=== PATIENT | male | born 1945 | race Caucasian/White ===

== ENCOUNTER 2017-12-15 17:25 | Emergency (ER) | payer MEDICARE, OTHER ==
[~2017-12-15] VITALS: Ht 180.3 cm; Wt 88.6 kg
[~2017-12-15 17:25] MED LIST: HIGH BLOOD PRESSURE; NORCO 325 MG-51 TAB PO; PRAVACHOL 20MG20 MG PO; PROMETHAZINE12.5 M5 PO; VASOTEC 5MG5 MG/TAB PO
[2017-12-15 17:28] VITALS: BP 144/90; TEMP 98.9
[2017-12-15] MEDS ORDERED: CONSTULOSE 20G/30ML PO (20:01)
[2017-12-15 20:15] VITALS: PULSE 101
== END 2017-12-15 20:17 | disposition home or self-care (01) ==
LOC: COL.ER 17:25
DX: K59.00 Constipation, unspecified (principal); I10 Essential (primary) hypertension; E78.5 Hyperlipidemia, unspecified; Z98.890 Other specified postprocedural states

== ENCOUNTER 2018-01-04 13:03 | Day surgery (SDC) | payer MEDICARE, OTHER ==
[~2018-01-04] VITALS: Ht 180.3 cm; Wt 95.7 kg
[~2018-01-04 13:03] MED LIST changes: +CONSTULOSE 20G/30ML PO
[2018-01-04 13:24] VITALS: BP 139/73; PULSE 95; TEMP 97.5
[2018-01-04 14:45] VITALS: BP 116/58; PULSE 86; TEMP 97.9
[2018-01-04 15:00] VITALS: BP 108/61; PULSE 80
== END 2018-01-04 15:25 | disposition home or self-care (01) ==
LOC: SDCO 13:03
DX: Z12.11 Encounter for screening for malignant neoplasm of colon (principal); K59.00 Constipation, unspecified; K57.30 Diverticulosis of large intestine without perforation or abscess without bleeding
CPT/HCPCS: G0121; J2250; J2405; J3010; J7030

== ENCOUNTER 2019-03-12 17:48 | Emergency (ER) | payer MEDICARE, OTHER ==
[~2019-03-12] VITALS: Ht 180.3 cm; Wt 86.4 kg
[2019-03-12 17:56] VITALS: BP 172/79; TEMP 98.5
[2019-03-12 20:13] VITALS: PULSE 79
== END 2019-03-12 20:17 | disposition home or self-care (01) ==
LOC: COL.ER 17:48
DX: K59.00 Constipation, unspecified (principal); I10 Essential (primary) hypertension; E70.0 Classical phenylketonuria

== ENCOUNTER 2019-03-21 22:41 | Inpatient (IN) | payer MEDICARE, OTHER ==
[~2019-03-21] VITALS: Ht 180.3 cm; Wt 90.6 kg
[2019-03-21 23:05] LABS: BASO % 0.1 % (0.0-2.0); GRAN # 13.3 (1.4-6.5); GRAN % 85.9 % (42.2-75.2); HEMATOCRIT 47.4 % (42.0-52.0); LYMPH # 1.4 (1.2-3.4); LYMPH % 9.3 % (20.0-51.0); MEAN CELL VOLUME 84 fl (80.0-100.0); MEAN CORPUSCULAR HEMOGLOBIN 29 pg (27.0-31.0); MEAN CORPUSCULAR HGB CONC 34 g/dl (33.0-37.0); MEAN PLATELET VOLUME 9.8 fl (7.4-10.4); MONO # 0.7 (0.1-0.6); MONO % 4.2 % (1.7-9.3); PLATELET COUNT 347 K/mm3 (130-400); RED BLOOD COUNT 5.62 M/mm3 (4.20-5.60); REDCELL DISTRIBUTION WIDTH-CV 13.5 % (11.5-14.5)
[2019-03-21 23:09] LABS: INR 1.1 (0.8-3.0); PROTHROMBIN TIME 12.3 SECONDS (9.7-12.8)
[2019-03-21 23:15] LABS: ALANINE AMINOTRANSFERASE 41 U/L (21-72); ALBUMIN 4.6 gm/dL (3.5-5.0); ALKALINE PHOSPHATASE 177 U/L (50-136); ANION GAP 16 mmol/L (7-16); AST,SGOT 31 U/L (15-37); BILIRUBIN,TOTAL 0.6 mg/dL (0.0-1.0); BLOOD UREA NITROGEN 21 mg/dL (9-20); CARBON DIOXIDE 27 mmol/L (22-30); CHLORIDE 98 mmol/L (98-107); CREATININE, serum 1.11 (0.66-1.25); GLUCOSE 260 mg/dL (74-106); LIPASE 76 U/L (23-300); POTASSIUM 4.2 mmol/L (3.4-5.0); SODIUM 141 mmol/L (137-145); TOTAL PROTEIN 7.8 gm/dL (6.4-8.2)
[2019-03-21 23:26] LABS: TROPONIN-I < 0.012 ng/mL (0.000-0.035)
--- NOTE | 2019-03-22 01:30 | NUR ---
Admitted per w/c from ED with diagnosis partial small bowel obstruction. Is alert and oriented x3. Has NGT to right nare, placed to LIS with return of green drainage. Has SL to right AC without redness or swelling. SCD's placed on patient. Oriented to call light and bed controls. Urinal at bedside, instructed to use the call light if needing to go to the bathroom, as his NGT would need to be unhooked, he verbalized understanding. Reviewed admission questions with patient.
[2019-03-22 02:06] VITALS: BP 150/63; PULSE 94; TEMP 98
--- NOTE | 2019-03-22 02:15 | NUR ---
Connected to IVF at 125cc/hr to right AC. Rates pain 4/10 to upper abdomen. No longer nauseated. Asks for lights out at this time.
[2019-03-22 03:39] VITALS: BP 136/57; PULSE 93; TEMP 98.2
--- NOTE | 2019-03-22 06:00 | NUR ---
Has 450cc of output from NGT. Denies need for pain med at this time.
[2019-03-22 06:58] VITALS: BP 144/61; PULSE 94; TEMP 98.3
[2019-03-22 07:48] LABS: HEMATOCRIT 43.4 % (42.0-52.0); HEMOGLOBIN 14.7 g/dl (13.5-18.0); MEAN CELL VOLUME 85 fl (80.0-100.0); MEAN CORPUSCULAR HEMOGLOBIN 29 pg (27.0-31.0); MEAN CORPUSCULAR HGB CONC 34 g/dl (33.0-37.0); MEAN PLATELET VOLUME 9.7 fl (7.4-10.4); PLATELET COUNT 338 K/mm3 (130-400); RED BLOOD COUNT 5.12 M/mm3 (4.20-5.60); REDCELL DISTRIBUTION WIDTH-CV 13.7 % (11.5-14.5)
--- NOTE | 2019-03-22 08:00 | NUR ---
Patient is sitting up in bed at this time. Minimal complaints of pain, mostly to his right nare. Spoke with Dr Pizano about patients glucose being over 260 on admission. Hospitalist consulted and notified. NG to LIS with bright green drainage. Patient denies nausea. No other changes at this time. Call light within reach.
[2019-03-22 08:17] LABS: CALCIUM 9.4 mg/dL (8.4-10.2); POTASSIUM 3.9 mmol/L (3.4-5.0)
[2019-03-22 10:13] LABS: BAND 3 % (0-10); LYMPHOCYTE 12 % (20.0-51.0); NEUTROPHILS 80 % (42.0-75.2); PLATELET ESTIMATE NORMAL (NORMAL)
--- NOTE | 2019-03-22 11:14 | NUR ---
Initial visit; Patient thanked [employer] for stopping and offering spiritual care. Patient spoke of his alcoholism and how he has gained a closer walk with God through the [employer] Program of Alcoholics Anonymous.
[2019-03-22 12:44] VITALS: BP 136/63; PULSE 90; TEMP 98.4
--- NOTE | 2019-03-22 13:32 | NUR ---
KEYLA met with the patient to discuss a discharge plan. The pt lives alone in [place]. The pt does not use any DME and reports independence with ADLs. The pt's PCP is Dr. Unger and the pt receives his medications from [facility] and via mail from [facility]. The pt reports no difficulties obtaining his medications. The pt does not have advanced directives in the EMR, but was not interested in obtaining his DPOA-HC at this time. The pt plans to return home upon discharge. KEYLA will continue to follow.
[2019-03-22 17:35] VITALS: BP 147/68; PULSE 87; TEMP 97.9
--- NOTE | 2019-03-22 18:30 | NUR ---
Patient has been doing ok today. His main complaint is of the NG tube. He has a bloody nose to the side the NG is on. Offered to move NG to other side but he was worried that would not help and to just leave to right nare. Minimal complaints of pain. Continues to deny nausea. 550 of green drainage from NG tube this shift. No other changes at this time. Call light within reach.
[2019-03-22 19:26] VITALS: BP 154/68; PULSE 88; TEMP 98.7
--- NOTE | 2019-03-22 21:00 | NUR ---
Pt. sitting up in bed at this time. Pt. is A&OX3, assessment complete. INT to rt. ac patent, IV to rt. forearm patent, IV fluids infusing per orders. NG tube to LIS, green drainage noted. Pt. denies pain or other needs at this time. Call light within reach.
[2019-03-23 00:39] VITALS: BP 120/49; PULSE 66; TEMP 98.1
[2019-03-23 04:24] VITALS: BP 130/65; PULSE 72; TEMP 99
[2019-03-23 06:20] LABS: HEMATOCRIT 37.9 % (42.0-52.0); MEAN CELL VOLUME 86 fl (80.0-100.0); MEAN CORPUSCULAR HEMOGLOBIN 29 pg (27.0-31.0); MEAN CORPUSCULAR HGB CONC 33 g/dl (33.0-37.0); PLATELET COUNT 275 K/mm3 (130-400); REDCELL DISTRIBUTION WIDTH-CV 13.8 % (11.5-14.5)
[2019-03-23 06:23] LABS: HEMOGLOBIN 12.6 g/dl (13.5-18.0)
[2019-03-23 06:27] LABS: ALBUMIN 3.4 gm/dL (3.5-5.0); BILIRUBIN,TOTAL 0.4 mg/dL (0.0-1.0); CALCIUM 8.4 mg/dL (8.4-10.2); CREATININE, serum 0.95 (0.66-1.25); POTASSIUM 3.8 mmol/L (3.4-5.0); TOTAL PROTEIN 5.8 gm/dL (6.4-8.2)
[2019-03-23 07:01] VITALS: BP 145/66; PULSE 66; TEMP 98.6
--- NOTE | 2019-03-23 08:48 | NUR ---
Patient sitting up in the chair this am. Hospitalist rounded. Patient reports hunger pain this am. Denies the need for pain medications. He denies nausea. Ng to Lis. Ng re taped to his nose. some blood noted to nares from irritation. Stopped NG at this time for AM dose of vasotec. Aware Ua orders will await for urine. Patient denies passing flatus or stool. IVf per orders. Will monitor.
--- NOTE | 2019-03-23 09:30 | NUR ---
Patient up in the room. denies needs.
[2019-03-23 10:14] LABS: BAND 3 % (0-10); EOSINOPHIL 1 % (0-4); LYMPHOCYTE 13 % (20.0-51.0); NEUTROPHILS 81 % (42.0-75.2); PLATELET ESTIMATE NORMAL (NORMAL)
[2019-03-23 13:50] LABS: COLLECTION METHOD CLEAN CATCH
[2019-03-23 13:55] LABS: MUCOUS Present /lpf; PH 7 (5-8); SQUAMOUS EPITHELIAL None Seen /hpf; URINE APPEARANCE Clear; URINE BACTERIA None Seen /hpf; URINE BILIRUBIN Negative (NEGATIVE); URINE BLOOD Negative (NEGATIVE); URINE COLOR Yellow; URINE GLUCOSE 1+ (NEGATIVE); URINE KETONE Negative (NEGATIVE); URINE LEUKOCYTE ESTERASE Negative (NEGATIVE); URINE NITRATE Negative (NEGATIVE); URINE PROTEIN(semi-quant) Negative (NEGATIVE); URINE RBC 0-2 /hpf; URINE UROBILINOGEN Negative (NEGATIVE)
[2019-03-23 13:58] VITALS: BP 128/54; PULSE 68; TEMP 98
--- NOTE | 2019-03-23 14:19 | NUR ---
rounded. Orders received for discharge. Patient was to see how the afternoon went after a soft diet, but he removed both of his IVs himself & was going to walk himself out. I did call & let him know he was ready to discharge now. So we reviewed all discharge paperwork. Patient set up to see for diabetic disease. Patient given some edcucation on diabetic diet & soft diet.
== END 2019-03-23 14:25 | disposition home or self-care (01) | DRG 390 ==
LOC: COL.ER 22:41 → SURG 03-22 00:28
PROVIDERS: Emergency Medicine; Physician Assistant; ADMIT Surgery
DX: K56.690 Other partial intestinal obstruction (principal); E11.65 Type 2 diabetes mellitus with hyperglycemia; I10 Essential (primary) hypertension; E78.5 Hyperlipidemia, unspecified; Z79.899 Other long term (current) drug therapy; Z88.6 Allergy status to analgesic agent; Z98.1 Arthrodesis status; Z90.49 Acquired absence of other specified parts of digestive tract
CPT/HCPCS: 99223; 99231-AI; G0378; J1815; J2405; J3010; J7030; Q9967

== ENCOUNTER 2020-03-25 11:50 | Inpatient (IN) | payer MEDICARE, OTHER ==
[~2020-03-25] VITALS: Ht 180.3 cm; Wt 83.7 kg
[2020-03-25 12:08] LABS: HEMATOCRIT 38.5 % (42.0-52.0); MEAN CELL VOLUME 84 fl (80.0-100.0); MEAN CORPUSCULAR HEMOGLOBIN 28 pg (27.0-31.0); MEAN CORPUSCULAR HGB CONC 34 g/dl (33.0-37.0); RED BLOOD COUNT 4.57 M/mm3 (4.20-5.60)
[2020-03-25 12:09] LABS: BASO % 0.3 % (0.0-2.0); EOS % 0.4 % (0-4.0); GRAN # 7.8 (1.4-6.5); GRAN % 76.5 % (42.2-75.2); LYMPH # 1.6 (1.2-3.4); LYMPH % 15.2 % (20.0-51.0); MEAN PLATELET VOLUME 9.4 fl (7.4-10.4); MONO # 0.8 (0.1-0.6); MONO % 7.3 % (1.7-9.3); PLATELET COUNT 301 K/mm3 (130-400); REDCELL DISTRIBUTION WIDTH-CV 13.6 % (11.5-14.5)
[2020-03-25 12:18] LABS: ALANINE AMINOTRANSFERASE 20 U/L (4-49); ALBUMIN 4.1 gm/dL (3.5-5.0); ALKALINE PHOSPHATASE 113 U/L (50-136); ANION GAP 12 mmol/L (7-16); AST,SGOT 21 U/L (15-37); BILIRUBIN,TOTAL 0.5 mg/dL (0.0-1.0); BLOOD UREA NITROGEN 17 mg/dL (9-20); CALCIUM 9.4 mg/dL (8.4-10.2); CARBON DIOXIDE 25 mmol/L (22-30); CHLORIDE 105 mmol/L (98-107); CREATININE, serum 0.91 (0.66-1.25); GLUCOSE 152 mg/dL (74-106); MAGNESIUM 1.8 mg/dL (1.6-2.3); POTASSIUM 3.3 mmol/L (3.4-5.0); SODIUM 142 mmol/L (137-145); TOTAL PROTEIN 6.8 gm/dL (6.4-8.2)
[2020-03-25 12:28] LABS: TROPONIN-I < 0.012 ng/mL (0.000-0.035)
[2020-03-25 13:04] LABS: INR 1.1 (0.8-3.0); PROTHROMBIN TIME 12.7 SECONDS (9.7-12.8)
[2020-03-25 13:07] LABS: PARTIAL THROMBOPLASTIN TIME 30.4 SECONDS (26.0-37.0)
[2020-03-25] MEDS ORDERED: PRAVACHOL 40MG40 MG PO (14:10)
[2020-03-25] MEDS ORDERED: GLUCOPHAGE500 MG/TAB PO (14:10)
[2020-03-25] MEDS ORDERED: VASOTEC 10M10 MG/TAB PO (14:11)
[2020-03-25 17:08] VITALS: BP 179/64; PULSE 71; TEMP 98.4
--- NOTE | 2020-03-25 18:15 | NUR ---
patient is alert but partially confused. Laceration on his right arm. patient said he fell on 03/24/20 when he was moving his furniture at home. patient report occasion falls. Patient is unsteady on his feets. there are some challenges with coordination when performing ADL's. right face drooping.
[2020-03-25 18:19] LABS: COLLECTION METHOD CLEAN CATCH
[2020-03-25 18:25] LABS: MUCOUS Present /lpf; PH 5 (5-8); SQUAMOUS EPITHELIAL None Seen /hpf; URINE APPEARANCE Clear; URINE BACTERIA None Seen /hpf; URINE BILIRUBIN Negative (NEGATIVE); URINE BLOOD 1+ (NEGATIVE); URINE COLOR Yellow; URINE GLUCOSE 1+ (NEGATIVE); URINE KETONE Negative (NEGATIVE); URINE LEUKOCYTE ESTERASE Negative (NEGATIVE); URINE NITRATE Negative (NEGATIVE); URINE PROTEIN(semi-quant) Negative (NEGATIVE); URINE RBC 0-2 /hpf
[2020-03-25 18:39] LABS: TRICYCLIC ANTIDEPRESS URINE NEGATIVE
[2020-03-25 19:44] VITALS: BP 154/62; PULSE 84; TEMP 98.4
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
[2020-03-25 23:08] VITALS: BP 150/60; PULSE 69; TEMP 98.1
[2020-03-26 04:23] VITALS: BP 150/49; PULSE 67; TEMP 98.1
--- NOTE | 2020-03-26 05:18 | NUR ---
PATIENT HAS BEEN UNABLE TO TELL ME THE PRESIDENT OR THE YEAR. PATIENT JUST SITS UP AND SETS THE BED ALARM OFF WHEN HE HAS TO GO TO THE BATHROOM. PATIENT HAS ALL THE SIGNAGE ON HIS DOOR FOR FALL RISK. PATIENT HAS DENIED ANY PAIN. WILL REPORT OFF TO DAY SHIFT.
[2020-03-26 07:46] LABS: BASO % 0.3 % (0.0-2.0); EOS # 0.1 (0.0-0.7); EOS % 1.5 % (0-4.0); GRAN % 66.6 % (42.2-75.2); HEMATOCRIT 37.1 % (42.0-52.0); HEMOGLOBIN 12.4 g/dl (13.5-18.0); LYMPH # 1.6 (1.2-3.4); LYMPH % 21.5 % (20.0-51.0); MEAN CELL VOLUME 85 fl (80.0-100.0); MEAN CORPUSCULAR HEMOGLOBIN 28 pg (27.0-31.0); MEAN CORPUSCULAR HGB CONC 33 g/dl (33.0-37.0); MEAN PLATELET VOLUME 10.2 fl (7.4-10.4); MONO # 0.7 (0.1-0.6); MONO % 9.8 % (1.7-9.3); PLATELET COUNT 267 K/mm3 (130-400); RED BLOOD COUNT 4.39 M/mm3 (4.20-5.60); REDCELL DISTRIBUTION WIDTH-CV 13.4 % (11.5-14.5)
[2020-03-26 08:08] LABS: CALCIUM 8.7 mg/dL (8.4-10.2); CHOLESTEROL RISK RATIO 3.5; CREATININE, serum 0.68 (0.66-1.25); MAGNESIUM 1.9 mg/dL (1.6-2.3); POTASSIUM 3.4 mmol/L (3.4-5.0)
[2020-03-26 08:20] VITALS: BP 169/60; PULSE 64; TEMP 98.9
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
--- NOTE | 2020-03-26 14:43 | NUR ---
Chelsea from [facility] states they are interested to take him for skilled but no decision has been made yet, they are still looking at the referral. Will continue to monitor.
[2020-03-26 16:42] VITALS: BP 177/69; PULSE 96; TEMP 97.6
--- NOTE | 2020-03-26 19:35 | NUR ---
Report given to oncoming shift
[2020-03-26 19:53] VITALS: BP 156/73; PULSE 76; TEMP 98.5
--- NOTE | 2020-03-26 20:00 | NUR ---
Received report from YURIDIA Dang. Alert to self. unable to state current date, president, place and situation. Denies any pain, NAD. Meds administered. Cooperative with care. Bed alarm set. RAC INT intact, flushed, dressing CDI. Tele monitor in place. Will monitor pt.
[2020-03-27] VITALS (7 sets, daily range): BP systolic 147–176; BP diastolic 56–78; PULSE 64–79; TEMP 97.7–98.2
--- NOTE | 2020-03-27 06:04 | NUR ---
Pt made no complaints during this shift. Woke up and got out of bed several times throughout the night to use BR. SBA. Assisted pt back to bed and bed alarm set. Will monitor.
--- NOTE | 2020-03-27 06:59 | NUR ---
Report given to YURIDIA Dang.
[2020-03-27 07:01] LABS: BASO % 0.3 % (0.0-2.0); EOS # 0.1 (0.0-0.7); EOS % 1.6 % (0-4.0); GRAN # 4.8 (1.4-6.5); GRAN % 65.5 % (42.2-75.2); HEMATOCRIT 40.1 % (42.0-52.0); HEMOGLOBIN 13.3 g/dl (13.5-18.0); LYMPH # 1.7 (1.2-3.4); LYMPH % 22.9 % (20.0-51.0); MEAN CELL VOLUME 85 fl (80.0-100.0); MEAN CORPUSCULAR HEMOGLOBIN 28 pg (27.0-31.0); MEAN CORPUSCULAR HGB CONC 33 g/dl (33.0-37.0); MEAN PLATELET VOLUME 10.2 fl (7.4-10.4); MONO # 0.7 (0.1-0.6); MONO % 9.3 % (1.7-9.3); PLATELET COUNT 271 K/mm3 (130-400); RED BLOOD COUNT 4.73 M/mm3 (4.20-5.60); REDCELL DISTRIBUTION WIDTH-CV 13.2 % (11.5-14.5)
[2020-03-27 07:29] LABS: CALCIUM 8.9 mg/dL (8.4-10.2); CREATININE, serum 0.77 (0.66-1.25)
--- NOTE | 2020-03-27 09:24 | NUR ---
Patient assisted up to shower. Tolerated well. Was assisted to recliner for breakfast. Is alert and confused. Chair alarm is on. Has used call light occasionally this morning. Call light is within reach.
--- NOTE | 2020-03-27 09:24 | NUR ---
KEYLA faxed updates to [employer] and [facility]. Will continue to follow.
--- NOTE | 2020-03-27 18:22 | NUR ---
Patient assisted to side of bed for supper. No other needs identified.
--- NOTE | 2020-03-27 19:22 | NUR ---
PATIENT RESTING IN BED DURING CHANGE OF SHIFT REPORT RECEIVED FROM DAY SHIFT NURSEALEC. BED ALARM ON.
--- NOTE | 2020-03-28 03:00 | NUR ---
PATIENT RESTLESS, AWAKENS FREQUENTLY, CONTINUES TO BE CONFUSED TO PLACE, EVENT, AND TIME. ORIENTED TO PERSON. BED ALARM ON.
[2020-03-28 03:12] VITALS: BP 137/59; PULSE 79; TEMP 97.8
[2020-03-28 07:21] VITALS: BP 155/60; PULSE 79; TEMP 98.1
--- NOTE | 2020-03-28 07:30 | NUR ---
PATIENT RESTING IN BED DURING CHANGE OF SHIFT REPORT GIVEN TO DAY SHIFT NURSEDARRICK. BED ALARM ON.
[2020-03-28 07:38] LABS: BASO % 0.2 % (0.0-2.0); EOS # 0.1 (0.0-0.7); EOS % 1.2 % (0-4.0); GRAN # 5.7 (1.4-6.5); GRAN % 69.5 % (42.2-75.2); HEMATOCRIT 43.6 % (42.0-52.0); HEMOGLOBIN 14.5 g/dl (13.5-18.0); LYMPH # 1.6 (1.2-3.4); LYMPH % 19.4 % (20.0-51.0); MEAN CELL VOLUME 85 fl (80.0-100.0); MEAN CORPUSCULAR HEMOGLOBIN 28 pg (27.0-31.0); MEAN CORPUSCULAR HGB CONC 33 g/dl (33.0-37.0); MEAN PLATELET VOLUME 10.2 fl (7.4-10.4); MONO # 0.8 (0.1-0.6); MONO % 9.3 % (1.7-9.3); PLATELET COUNT 306 K/mm3 (130-400); RED BLOOD COUNT 5.15 M/mm3 (4.20-5.60); REDCELL DISTRIBUTION WIDTH-CV 13.1 % (11.5-14.5)
[2020-03-28 07:54] LABS: CALCIUM 9.3 mg/dL (8.4-10.2); CREATININE, serum 0.82 (0.66-1.25); POTASSIUM 3.8 mmol/L (3.4-5.0)
[2020-03-28] MEDS ORDERED: VASOTEC20 MG PO (08:52)
[2020-03-28] MEDS ORDERED: NAMENDA5 MG PO (08:55)
[2020-03-28] MEDS ORDERED: HCTZ 25MG TAB25 MG PO (08:56)
[2020-03-28] MEDS ORDERED: NAMENDA 10MG TA10 MG PO (08:56)
[2020-03-28 11:50] VITALS: BP 120/57; PULSE 86; TEMP 98.2
--- NOTE | 2020-03-28 15:53 | NUR ---
Paulette from [facility] contacted KEYLA regarding placement for the patient. There were two staff that tested positive for Covid-19 and that they were informing the families of patients to inform them. The patient's DPOA-HCs and the rest of the family decided not to go to [facility] or to any SNF so that they can protect the patient from Covid-19. The family opt for the patient to go home with his niece Nimco to [place] near [place] with [facility]. KEYLA informed the family they have a 30 day window to chose to go to SNF if they decided to do so at a later time. [facility] was chosen. KEYLA faxed referral for PT/OT/ST/Nursing. [facility] reports they can accept the patient for services. The patient discharged today, 03/28. KEYLA faxed orders to Thania with [facility]. The patient was transported by his niece Nimco. There are no additional needs at this time.
--- NOTE | 2020-03-28 20:35 | NUR ---
Patient confused and unsteaday on his feet at time of discharge. iv discvontinued. he was discharged home with his Niece Danika.
--- NOTE | 2020-03-31 11:15 | NUR ---
KEYLA received a message from the patient's niece, Nimco on Tuesday, 03/29 about the patient. KEYLA contacted Nimco. She stated that the patient was too much for her to handle and admitted him to [facility] in [place] and they wanted some information on the patient. KEYLA contacted Kimberly from [facility]. KEYLA faxed over a packet of information. There are no additional needs at this time.
== END 2020-03-28 15:00 | disposition home health service (06) | DRG 884 ==
LOC: COL.ER 11:50 → MEDICAL 14:44
PROVIDERS: Emergency Medicine; Physician Assistant; ADMIT Student in an Organized Health Care Education/Training Program
DX: F03.90 Unspecified dementia, unspecified severity, without behavioral disturbance, psychotic disturbance, mood disturbance, and anxiety (principal); G93.40 Encephalopathy, unspecified; I16.0 Hypertensive urgency; E87.6 Hypokalemia; E11.9 Type 2 diabetes mellitus without complications; I35.1 Nonrheumatic aortic (valve) insufficiency; S51.811A Laceration without foreign body of right forearm, initial encounter; V49.9XXA Car occupant (driver) (passenger) injured in unspecified traffic accident, initial encounter; R29.810 Facial weakness; I10 Essential (primary) hypertension; Y93.9 Activity, unspecified; Y92.481 Parking lot as the place of occurrence of the external cause; E78.5 Hyperlipidemia, unspecified; R53.81 Other malaise; Z79.84 Long term (current) use of oral hypoglycemic drugs; Z88.6 Allergy status to analgesic agent; Z86.73 Personal history of transient ischemic attack (TIA), and cerebral infarction without residual deficits; Z91.14 Patient's other noncompliance with medication regimen
CPT/HCPCS: OP; 99223-AI; 99231-AI; 99233-AI; 99239; A9585; G0378; J1650; J7040; Q9967